=== PATIENT | female | born 1995 | race Caucasian/White ===

== ENCOUNTER 2017-01-21 09:29 | Emergency (ER) | payer SELFPAY ==
[~2017-01-21 09:29] MED LIST: COLACE 100MG C100 MG PO
[2017-01-21 10:34] LABS: HEMOGLOBIN 13.1 gm/dl (12.3-15.3); RED BLOOD COUNT 4.75 M/UL (4.00-5.10); WHITE BLOOD COUNT 13.7 K/UL (4.5-11.0)
[2017-01-21 10:53] LABS: BUN/CREATININE RATIO 16 (0-10)
== END 2017-01-21 12:44 | disposition home or self-care (01) ==
LOC: ER1 09:29
PROVIDERS: Physician Assistant
DX: N39.0 Urinary tract infection, site not specified (principal); R31.9 Hematuria, unspecified; F17.210 Nicotine dependence, cigarettes, uncomplicated; Z88.8 Allergy status to other drugs, medicaments and biological substances
CPT/HCPCS: 36415; 80053; 81001; 84703; 85025; 96361; 96365; 96375; 99284; J0696; J2270; J2405; J7030; J7050

== ENCOUNTER → 2017-05-01 | Outpatient (CLI) | payer OTHER | LOC: RAD 11:40 | DX: M54.5 Low back pain (principal); M95.0 Acquired deformity of nose; S02.2XXA Fracture of nasal bones, initial encounter for closed fracture | CPT/HCPCS: 70160; 72100 ==